=== PATIENT | female | born 1985 | race Caucasian/White ===

== ENCOUNTER 2017-09-16 17:55 | Emergency (ER) | payer MEDICAID, OTHER ==
[~2017-09-16] VITALS: Ht 160 cm; Wt 90.9 kg
[~2017-09-16 17:55] MED LIST: CIPR250T27 PO; HYDR-3237 PO; METR500T PO; ONDA4TAB10 PO
[2017-09-16 18:21] LABS: HEMATOCRIT 42.3 % (34.6-47.8); HEMOGLOBIN 14.1 g/dL (11.7-16.4); WHITE BLOOD COUNT 14.3 x10^3/uL (3.4-10)
[2017-09-16] MEDS ORDERED: ASPIRIN 81 MG TABLET CHEW ONE (18:21)
[2017-09-16] MEDS ORDERED: MAALOX/HYOSCYAMINE/LIDOCAINE 45 ML BTL PO ONE (18:30)
[2017-09-16] MEDS ORDERED: FAMOTIDINE 20 MG TABLET PO ONE (18:30)
[2017-09-16] MEDS ORDERED: SODIUM CHLORIDE FLUSH 10ML SYR IVF ONE (18:30)
[2017-09-16] MEDS ORDERED: ASPIRIN 81 MG TABLET CHEW PO ONE (18:30)
[2017-09-16] MEDS ORDERED: SODIUM CHLORIDE 0.9% 1,000ML IVBOLUS ONE (18:30)
[2017-09-16 18:34] LABS: ASPARTATE AMINO TRANSFERASE 16 U/L (15-37); BLOOD UREA NITROGEN 16 mg/dL (7-18)
[2017-09-16 18:38] LABS: IS PT STATUS REG ER OR PRE ER? YES
[2017-09-16] MEDS ORDERED: MAALOX/HYOSCYAMINE/LIDOCAINE 45 ML BTL ONE (19:05)
[2017-09-16] MEDS ORDERED: FAMOTIDINE 20 MG/2 ML ONE (19:05)
[2017-09-16 20:45] LABS: PATH.CAST-FLAG NOT PRESENT; SPERM-FLAG NOT PRESENT; SRC-FLAG NOT PRESENT; XTAL-FLAG NOT PRESENT; YLC-FLAG NOT PRESENT
[2017-09-16 21:00] LABS: HCG UR LOT HCG7030192
[2017-09-16 21:18] LABS: HCG UR OBC PASS
[2017-09-16 22:35] VITALS: BP 146/101
== END 2017-09-16 22:48 | disposition home or self-care (01) ==
LOC: ED 20:06
DX: R06.02 Shortness of breath (principal); R10.84 Generalized abdominal pain; E66.9 Obesity, unspecified
CPT/HCPCS: 36415; 71010; 80053; 81001; 81025; 83690; 84484; 85025; 85379; 87086; 93005; 96360; 99285; J7030

== ENCOUNTER 2018-09-15 13:18 | Emergency (ER) | payer MEDICAID, OTHER ==
[~2018-09-15] VITALS: Ht 158.8 cm; Wt 94.2 kg
[2018-09-15 14:22] LABS: MICROSCOPIC AUTO
[2018-09-15 14:27] LABS: BASOPHILS # (AUTO) 0.05 x10^3/uL (0-0.1); BASOPHILS % (AUTO) 1 % (0-1); EOSINOPHILS # (AUTO) 0.16 x10^3/uL (0-0.4); EOSINOPHILS % (AUTO) 2 % (1-7); LYMPHOCYTES # (AUTO) 2.38 x10^3/uL (1-3.4); LYMPHOCYTES % (AUTO) 26 % (22-44); MD NO; MEAN CORPUSCULAR HEMOGLOBIN 28.2 pg (27.0-34.8); MEAN CORPUSCULAR HGB CONC 33.5 g/dL (32.4-35.8); MEAN CORPUSCULAR VOLUME 84.2 fL (80-100); MEAN PLATELET VOLUME 9.2 fL (7.4-10.4); MONOCYTES # (AUTO) 0.63 x10^3/uL (0.2-0.8); MONOCYTES % (AUTO) 7 % (2-9); NEUTROPHILS # (AUTO) 5.93 x10^3/uL (1.8-6.8); NEUTROPHILS % (AUTO) 65 % (42-75); PLATELET COUNT 312 x10^3/uL (130-400); RED BLOOD COUNT 4.96 x10^6/uL (3.82-5.3); RED CELL DISTRIBUTION WIDTH 14.2 % (9.6-15.2)
[2018-09-15 14:40] LABS: ALANINE AMINOTRANSFERASE 37 U/L (12-78); ALBUMIN 3.5 g/dL (3.4-5.0); CALCIUM 8.3 mg/dL (8.5-10.1); CREATININE 0.75 mg/dL (0.55-1.02)
[2018-09-15 14:42] LABS: CULTURE INDICATED? YES
[2018-09-15 14:42] LABS: ALKALINE PHOSPHATASE 92 U/L (45-117); BILIRUBIN,TOTAL 0.3 mg/dL (0.2-1.0); TOTAL PROTEIN 6.8 g/dL (6.4-8.2)
[2018-09-15] MEDS ORDERED: ONDANSETRON ODT 4 MG ONE (14:50)
[2018-09-15] MEDS ORDERED: MAALOX/HYOSCYAMINE/LIDOCAINE 45 ML BTL ONE (14:51)
[2018-09-15] MEDS ORDERED: ONDANSETRON ODT 4 MG PO ONE (15:00)
[2018-09-15] MEDS ORDERED: MAALOX/HYOSCYAMINE/LIDOCAINE 45 ML BTL PO ONE (15:00)
[2018-09-15 15:03] LABS: ANION GAP 6 mmol/L (5-15); CHLORIDE 110 mmol/L (98-107)
[2018-09-15 16:00] VITALS: BP 146/93
== END 2018-09-15 16:02 | disposition home or self-care (01) ==
LOC: ED 14:44
DX: R10.13 Epigastric pain (principal)
CPT/HCPCS: 36415; 80053; 81001; 81025; 83690; 85025; 87086; 93005; 99284; Q0162

== ENCOUNTER → 2018-10-16 | Outpatient (CLI) | payer OTHER ==
[~2018-10-16] MED LIST changes: +OMNIPAQUE 350 MG/ML, 100ML BOTTLE ONE
== END | disposition home or self-care (01) ==
LOC: CFH 14:28
PROVIDERS: ATTEND Nurse Practitioner Family
DX: K57.30 Diverticulosis of large intestine without perforation or abscess without bleeding (principal); K59.00 Constipation, unspecified; R12 Heartburn; R11.2 Nausea with vomiting, unspecified; Z90.49 Acquired absence of other specified parts of digestive tract
CPT/HCPCS: 74177; Q9967

== ENCOUNTER 2019-12-06 16:33 | Emergency (ER) | payer OTHER ==
[~2019-12-06] VITALS: Ht 157.5 cm; Wt 90.8 kg
[~2019-12-06 16:33] MED LIST changes: -OMNIPAQUE 350 MG/ML, 100ML BOTTLE ONE
--- NOTE | 2019-12-06 16:50 | NUR ---
NA X1
--- NOTE | 2019-12-06 17:18 | NUR ---
INVENTORY AUDITOR: PT GETTING LABS AT THIS TIME. THEN WILL BE TAKEN TO ROOM 23. NADN.
[2019-12-06 17:38] LABS: BASOPHILS # (AUTO) 0.06 x10^3/uL (0-0.1); BASOPHILS % (AUTO) 0 % (0-1); EOSINOPHILS % (AUTO) 3 % (1-7); LYMPHOCYTES # (AUTO) 2.12 x10^3/uL (1-3.4); LYMPHOCYTES % (AUTO) 14 % (22-44); MD NO; MEAN CORPUSCULAR HEMOGLOBIN 26.8 pg (27.0-34.8); MEAN CORPUSCULAR HGB CONC 32.7 g/dL (32.4-35.8); MEAN PLATELET VOLUME 9.5 fL (7.4-10.4); MONOCYTES # (AUTO) 0.74 x10^3/uL (0.2-0.8); MONOCYTES % (AUTO) 5 % (2-9); NEUTROPHILS # (AUTO) 11.76 x10^3/uL (1.8-6.8); NEUTROPHILS % (AUTO) 78 % (42-75); PLATELET COUNT 310 x10^3/uL (130-400); RED BLOOD COUNT 4.51 x10^6/uL (3.82-5.3); RED CELL DISTRIBUTION WIDTH 15.4 % (9.6-15.2)
[2019-12-06 17:42] LABS: ALANINE AMINOTRANSFERASE 16 U/L (12-78); ALBUMIN 3.4 g/dL (3.4-5.0); ANION GAP 5 mmol/L (5-15); CALCIUM 8.4 mg/dL (8.5-10.1); CHLORIDE 109 mmol/L (98-107)
[2019-12-06 17:46] LABS: ALKALINE PHOSPHATASE 76 U/L (45-117); BILIRUBIN,TOTAL 0.2 mg/dL (0.2-1.0); TOTAL PROTEIN 6.5 g/dL (6.4-8.2)
[2019-12-06] MEDS ORDERED: SODIUM CHLORIDE 0.9% 1,000 ML IV ONE (18:07)
--- NOTE | 2019-12-06 18:22 | NUR ---
UP TO RESTROOM TO VOID
[2019-12-06] MEDS ORDERED: ONDANSETRON 2MG/ML, 2ML IVPush ONE (18:30)
[2019-12-06] MEDS ORDERED: SODIUM CHLORIDE FLUSH 10ML SYR IVF ONE (18:30)
[2019-12-06] MEDS ORDERED: MORPHINE SULFATE 4 MG/ML, 1ML ONE ×2 (18:33→19:39)
[2019-12-06] MEDS ORDERED: ONDANSETRON 2MG/ML, 2ML ONE (18:33)
[2019-12-06] MEDS: MORPHINE SULFATE 4 MG/ML, 1ML IVPush PRN ×2 (18:49→19:42)
--- NOTE | 2019-12-06 19:10 | NUR ---
TO CT SCAN
--- NOTE | 2019-12-06 19:18 | NUR ---
PAIN IMPROVED TO 0/10 VSS ON NIBP/POX UPDATED ON ESTIMATED POC
[2019-12-06 19:21] LABS: MICROSCOPIC INDICATED
[2019-12-06 19:38] LABS: CULTURE INDICATED? NO
[2019-12-06] MEDS ORDERED: OMNIPAQUE 350 MG/ML, 100ML BOTTLE ONE (19:38)
--- NOTE | 2019-12-06 19:42 | NUR ---
PAIN REBOUNDED TO 7/10-REMEDICATED PER EMAR
[2019-12-06 19:43] VITALS: BP 145/85
--- NOTE | 2019-12-06 19:53 | NUR ---
RADIOLOGY CALLED TO EXPIDIT CT READ
== END 2019-12-06 20:51 ==
LOC: ED 19:20
DX: K57.32 Diverticulitis of large intestine without perforation or abscess without bleeding (principal); F17.200 Nicotine dependence, unspecified, uncomplicated; Z90.49 Acquired absence of other specified parts of digestive tract
CPT/HCPCS: 36415; 74177; 80053; 81001; 83690; 84703; 85025; 96361; 96374; 96375; 96376; 99285; J2270; J2405; J7030; Q9967

== ENCOUNTER 2020-08-04 11:18 | Outpatient (CLI) | payer SELFPAY ==
[~2020-08-04] VITALS: Ht 157.5 cm; Wt 104.5 kg
[2020-08-04 11:43] VITALS: BP 134/80
[2020-08-04 12:00] LABS: ALANINE AMINOTRANSFERASE 16 U/L (12-78); ALBUMIN 2.5 g/dL (3.4-5.0); ANION GAP 10 mmol/L (5-15); CALCIUM 10.2 mg/dL (8.5-10.1); CHLORIDE 108 mmol/L (98-107); CREATININE 0.74 mg/dL (0.55-1.02)
[2020-08-04 12:01] LABS: CREATININE,URINE RANDOM 95.7 mg/dL
[2020-08-04 12:02] LABS: ALKALINE PHOSPHATASE 134 U/L (45-117); BILIRUBIN,TOTAL 0.2 mg/dL (0.2-1.0); TOTAL PROTEIN 6.9 g/dL (6.4-8.2)
[2020-08-04 12:07] LABS: MICROSCOPIC INDICATED
[2020-08-04 12:11] LABS: BASOPHILS % (AUTO) 0 % (0-1); EOSINOPHILS % (AUTO) 0 % (1-7); LYMPHOCYTES % (AUTO) 12 % (22-44); MEAN CORPUSCULAR HEMOGLOBIN 27.2 pg (27.0-34.8); MEAN CORPUSCULAR HGB CONC 32.6 g/dL (32.4-35.8); MEAN PLATELET VOLUME 9.5 fL (7.4-10.4); MONOCYTES % (AUTO) 4 % (2-9); NEUTROPHILS % (AUTO) 83 % (42-75); PLATELET COUNT 292 x10^3/uL (130-400); RED BLOOD COUNT 4.45 x10^6/uL (3.82-5.3); RED CELL DISTRIBUTION WIDTH 15.1 % (9.6-15.2)
[2020-08-04 12:37] LABS: MD NO
== END 2020-08-04 12:43 | disposition home or self-care (01) ==
LOC: LDOP 11:18
PROVIDERS: ATTEND Obstetrics & Gynecology
DX: O16.3 Unspecified maternal hypertension, third trimester (principal); Z3A.38 38 weeks gestation of pregnancy
CPT/HCPCS: 36415; 59025; 80053; 81001; 82570; 84156; 84550; 85025

== ENCOUNTER 2020-08-10 12:52 | Inpatient (IN) | payer OTHER ==
[~2020-08-10] VITALS: Ht 157.5 cm; Wt 106.8 kg
[2020-08-10 13:49] LABS: MICROSCOPIC INDICATED
[2020-08-10] MEDS ORDERED: D5%-LACTATED RINGERS 1,000 ML IV SCH (14:00)
[2020-08-10] MEDS ORDERED: OXYTOCIN 30U/ 0.9% NaCL 500ML 500 ML IV PRN (14:00)
[2020-08-10] MEDS ORDERED: FENTANYL PF 100 MCG/2ML IVPush PRN (14:00)
[2020-08-10] MEDS ORDERED: OXYTOCIN 30U/ 0.9% NaCL 500ML 500 ML IV ONE (14:00)
[2020-08-10] MEDS ORDERED: TERBUTALINE 1 MG/ML, 1ML SQ PRN (14:00)
[2020-08-10] MEDS ORDERED: TERBUTALINE 1 MG/ML, 1ML IVPush PRN (14:00)
[2020-08-10] MEDS ORDERED: PLEASE ENTER HEIGHT AND WEIGHT MC SCH ×2 (14:00→14:30)
[2020-08-10 14:01] LABS: BASOPHILS % (AUTO) 0 % (0-1); EOSINOPHILS % (AUTO) 1 % (1-7); LYMPHOCYTES % (AUTO) 13 % (22-44); MEAN CORPUSCULAR HEMOGLOBIN 27.2 pg (27.0-34.8); MEAN CORPUSCULAR HGB CONC 32.5 g/dL (32.4-35.8); MEAN PLATELET VOLUME 9.5 fL (7.4-10.4); MONOCYTES % (AUTO) 7 % (2-9); NEUTROPHILS % (AUTO) 79 % (42-75); PLATELET COUNT 311 x10^3/uL (130-400); RED BLOOD COUNT 4.45 x10^6/uL (3.82-5.3); RED CELL DISTRIBUTION WIDTH 15.4 % (9.6-15.2)
[2020-08-10 14:12] LABS: ALANINE AMINOTRANSFERASE 19 U/L (12-78); ALBUMIN 2.4 g/dL (3.4-5.0); ANION GAP 7 mmol/L (5-15); BILIRUBIN, DIRECT < 0.1 mg/dL (0.1-0.2); CALCIUM 9.8 mg/dL (8.5-10.1); CHLORIDE 108 mmol/L (98-107); CREATININE 0.65 mg/dL (0.55-1.02)
[2020-08-10 14:14] LABS: ALKALINE PHOSPHATASE 129 U/L (45-117); BILIRUBIN,TOTAL 0.2 mg/dL (0.2-1.0); TOTAL PROTEIN 6.8 g/dL (6.4-8.2)
[2020-08-10] MEDS: LACTATED RINGERS 1,000 ML IV SCH ×2 (14:22→20:34)
[2020-08-10] MEDS ORDERED: LABETALOL 5MG/ML, 20ML ONE (14:35)
[2020-08-10 14:45] VITALS: BP 181/99
[2020-08-10 14:48] LABS: MD SCAN
[2020-08-10] MEDS ORDERED: LABETALOL 5MG/ML, 20ML IVPush PRN ×3 (15:00)
[2020-08-10] MEDS ORDERED: hydrALAzine 20 MG/ML, 1ML IVPush ONE (15:00)
[2020-08-10] MEDS ORDERED: CALCIUM CARBONATE 500 MG TAB.CHEW ONE ×2 (15:02→22:19)
[2020-08-10] MEDS: CALCIUM CARBONATE 500 MG TAB.CHEW PO PRN ×2 (15:03→22:10)
[2020-08-10] MEDS ORDERED: OXYTOCIN 30U/ 0.9% NaCL 500ML 500 ML ONE (15:39)
[2020-08-10] MEDS ORDERED: LABETALOL 5MG/ML, 20ML IVPush STA (17:16)
[2020-08-10] MEDS ORDERED: MAGNESIUM SULF. PMX 20GM/500ML 500 ML IV ONE (18:25)
[2020-08-10] MEDS ORDERED: MAGNESIUM SULFATE PMX 4GM/100M 100 ML IVPB ONE (18:30)
[2020-08-10] MEDS ORDERED: PREN1TAB60 PO (18:43)
[2020-08-10] MEDS: MAGNESIUM SULF. PMX 20GM/500ML 500 ML IV SCH (18:55)
[2020-08-10] MEDS ORDERED: BUPIVACAINE 0.25% ONE (21:02)
[2020-08-10] MEDS ORDERED: FENTANYL/BUPIV./NS/PF 250 ML EPIDCONT ONE (21:03)
[2020-08-10] MEDS ORDERED: EPHEDRINE 50 MG/ML, 1ML ONE (21:30)
[2020-08-10] MEDS ORDERED: LACTATED RINGERS 1,000 ML IV SCH (21:30)
[2020-08-10] MEDS ORDERED: FENTANYL/BUPIV./NS/PF 250 ML EPIDCONT SCH (21:30)
[2020-08-10] MEDS ORDERED: LACTATED RINGERS 1,000 ML IVBOLUS PRN (21:30)
[2020-08-10] MEDS: EPHEDRINE 50 MG/ML, 1ML IVPush PRN ×2 (21:32→22:06)
[2020-08-11] MEDS ORDERED: ONDANSETRON 2MG/ML, 2ML ONE (01:21)
[2020-08-11] MEDS ORDERED: ONDANSETRON 2MG/ML, 2ML IVPush PRN (01:30)
[2020-08-11] MEDS ORDERED: MAGNESIUM SULF. PMX 20GM/500ML 500 ML IV ONE ×3 (01:53→21:56)
[2020-08-11] MEDS: MAGNESIUM SULF. PMX 20GM/500ML 500 ML IV SCH ×3 (02:33→22:05)
[2020-08-11] MEDS ORDERED: NEWBORN KIT ONE (03:33)
[2020-08-11] MEDS ORDERED: MISOPROSTOL 200 MCG TABLET ONE (03:43)
[2020-08-11] MEDS ORDERED: LIDOCAINE 1%, 20ML ONE (03:43)
[2020-08-11] MEDS ORDERED: OXYTOCIN 30U/ 0.9% NaCL 500ML 500 ML ONE (04:13)
[2020-08-11] MEDS: OXYTOCIN 30U/ 0.9% NaCL 500ML 500 ML IV SCH ×2 (04:30→14:30)
[2020-08-11] MEDS ORDERED: SIMETHICONE 80 MG CHEW TAB PO PRN (04:30)
[2020-08-11] MEDS ORDERED: DIPH,PERTUSS(ACELL),TET VAC/PF NC IM-VACC PRN (04:30)
[2020-08-11] MEDS ORDERED: CARBOPROST TROMETHAMINE 250 MCG/ML, 1ML IM PRN (04:30)
[2020-08-11] MEDS ORDERED: IBUPROFEN 600 MG TABLET PO PRN (04:30)
[2020-08-11] MEDS ORDERED: TRANEXAMIC ACID 100 MG/ML, 10ML IV ONE (04:30)
[2020-08-11] MEDS ORDERED: MISOPROSTOL 200 MCG TABLET PR PRN (04:30)
[2020-08-11] MEDS ORDERED: ACETAMINOPHEN 325 MG TABLET ONE (05:11)
[2020-08-11] MEDS: ACETAMINOPHEN 325 MG TABLET PO PRN (05:13)
[2020-08-11] MEDS: LACTATED RINGERS 1,000 ML IV SCH ×3 (06:00→22:00)
[2020-08-11] MEDS ORDERED: OXYcodone IR 5MG TABLET ONE (06:56)
[2020-08-11] MEDS ORDERED: OXYcodone IR 5MG TABLET PO PRN (07:00)
[2020-08-11 08:23] VITALS: BP 137/85
[2020-08-11] MEDS: PRENATAL VIT/IRON/FA 1 EACH TABLET PO SCH (09:00)
[2020-08-11] MEDS ORDERED: OXYcodone/APAP 5/325MG TABLET ONE ×2 (10:19→18:34)
[2020-08-11] MEDS: OXYcodone/APAP 5/325MG TABLET PO PRN ×2 (10:23→18:36)
[2020-08-11 12:09] LABS: BASOPHILS % (AUTO) 0 % (0-1); EOSINOPHILS % (AUTO) 0 % (1-7); LYMPHOCYTES % (AUTO) 7 % (22-44); MEAN CORPUSCULAR HEMOGLOBIN 27.5 pg (27.0-34.8); MEAN CORPUSCULAR HGB CONC 32.6 g/dL (32.4-35.8); MEAN PLATELET VOLUME 9.1 fL (7.4-10.4); MONOCYTES % (AUTO) 5 % (2-9); NEUTROPHILS % (AUTO) 89 % (42-75); PLATELET COUNT 236 x10^3/uL (130-400); RED BLOOD COUNT 3.87 x10^6/uL (3.82-5.3); RED CELL DISTRIBUTION WIDTH 15.9 % (9.6-15.2)
[2020-08-11 12:45] LABS: MD SCAN
[2020-08-11] MEDS ORDERED: OMNIPAQUE 350 MG/ML, 100ML BOTTLE ONE (23:24)
[2020-08-12] MEDS: OXYTOCIN 30U/ 0.9% NaCL 500ML 500 ML IV SCH ×3 (00:30→20:30)
[2020-08-12] MEDS ORDERED: OXYcodone/APAP 5/325MG TABLET ONE ×2 (02:10→07:18)
[2020-08-12] MEDS: OXYcodone/APAP 5/325MG TABLET PO PRN ×2 (02:13→07:22)
[2020-08-12] MEDS: LACTATED RINGERS 1,000 ML IV SCH ×3 (06:00→22:00)
[2020-08-12 08:30] VITALS: BP 147/84
[2020-08-12] MEDS: DOCUSATE 100 MG CAPSULE PO PRN (08:57)
[2020-08-12] MEDS: PRENATAL VIT/IRON/FA 1 EACH TABLET PO SCH ×2 (08:57→09:00)
[2020-08-12] MEDS: ACETAMINOPHEN 325 MG TABLET PO PRN ×3 (12:13→23:36)
[2020-08-12 12:30] VITALS: BP 137/90
[2020-08-12 16:30] VITALS: BP 151/96
[2020-08-12 20:00] VITALS: BP 140/87
[2020-08-13] VITALS (10 sets, daily range): BP systolic 144–162; BP diastolic 78–106
[2020-08-13] MEDS: LACTATED RINGERS 1,000 ML IV SCH ×3 (06:00→22:00)
[2020-08-13] MEDS: OXYTOCIN 30U/ 0.9% NaCL 500ML 500 ML IV SCH ×2 (06:30→16:30)
[2020-08-13] MEDS: DOCUSATE 100 MG CAPSULE PO PRN ×2 (08:25→20:18)
[2020-08-13] MEDS: PRENATAL VIT/IRON/FA 1 EACH TABLET PO SCH (08:25)
[2020-08-13] MEDS: OXYcodone/APAP 5/325MG TABLET PO PRN ×4 (08:26→20:18)
[2020-08-13] MEDS ORDERED: IBUP-1223 PO (09:32)
[2020-08-13] MEDS ORDERED: OXYC-302 PO (09:34)
[2020-08-13] MEDS: ACETAMINOPHEN 325 MG TABLET PO PRN (11:12)
[2020-08-13] MEDS ORDERED: niFEDipine ER 30 MG TABLET.ER ONE (15:23)
[2020-08-13] MEDS: niFEDipine ER 30 MG TABLET.ER PO SCH (15:28)
[2020-08-14 00:35] VITALS: BP 148/95
[2020-08-14] MEDS: OXYcodone/APAP 5/325MG TABLET PO PRN ×4 (00:38→14:53)
[2020-08-14] MEDS: OXYTOCIN 30U/ 0.9% NaCL 500ML 500 ML IV SCH (02:30)
[2020-08-14 05:00] VITALS: BP 150/94
[2020-08-14] MEDS: LACTATED RINGERS 1,000 ML IV SCH (06:00)
[2020-08-14] MEDS ORDERED: niFEDipine ER 30 MG TABLET.ER PO ONE (07:00)
[2020-08-14 08:00] VITALS: BP 138/87
[2020-08-14] MEDS: DOCUSATE 100 MG CAPSULE PO PRN (08:16)
[2020-08-14] MEDS: PRENATAL VIT/IRON/FA 1 EACH TABLET PO SCH (08:16)
[2020-08-14] MEDS: ACETAMINOPHEN 325 MG TABLET PO PRN ×2 (08:17→12:37)
[2020-08-14 12:00] VITALS: BP 137/82
[2020-08-14] MEDS: niFEDipine ER 30 MG TABLET.ER PO SCH (15:48)
[2020-08-14 16:00] VITALS: BP 149/94
[2020-08-14 16:45] VITALS: BP 147/92
== END 2020-08-14 18:58 | disposition home or self-care (01) | DRG 807 ==
LOC: LDOP 12:52 → LDIP 13:52 → 2NE 08-11 06:10 → 2NW 08-12 08:21
PROVIDERS: ADMIT Obstetrics & Gynecology; ATTEND Obstetrics & Gynecology
PROC: 10E0XZZ Delivery of Products of Conception, External Approach (ICD-10-PCS; principal; 2020-08-11)
DX: O14.14 Severe pre-eclampsia complicating childbirth (principal); Z37.0 Single live birth; Z20.828 Contact with and (suspected) exposure to other viral communicable diseases; Z3A.39 39 weeks gestation of pregnancy; Z91.010 Allergy to peanuts
CPT/HCPCS: 36415; 71045; 71275; 80053; 81001; 82248; 82570; 83735; 84156; 84550; 85025; 86592; 86850; 86900; 87635; G0378; J2405; Q9967; J2590; J3475; J7120

== ENCOUNTER 2021-05-29 12:33 | Emergency (ER) | payer OTHER ==
[~2021-05-29] VITALS: Ht 157.5 cm; Wt 101.0 kg
[~2021-05-29 12:33] MED LIST changes: +IBUP-1223 PO; +OXYC1TAB14 PO; +PREN1TAB60 PO
[2021-05-29 12:45] VITALS: BP 148/79
[2021-05-29] MEDS ORDERED: OXYcodone/APAP 5/325MG TABLET ONE (13:12)
[2021-05-29] MEDS ORDERED: OXYcodone/APAP 5/325MG TABLET PO ONE (13:30)
--- NOTE | 2021-05-29 13:49 | NUR ---
PT STATES PAIN IS BETTER
--- NOTE | 2021-05-29 14:34 | NUR ---
PT REFUSED CRUTCHES, HAS SOME AT HOME
--- NOTE | 2021-05-29 14:34 | NUR ---
Patient/Caregiver given discharge instructions and they have confirmed that they understand the instructions. Patient ambulatory with steady gait. NAD, all questions answered appropriately, denies additional needs at this time. No personal belongings left in room after discharge.
== END 2021-05-29 14:35 | disposition home or self-care (01) ==
LOC: ED 13:54
DX: S82.64XA Nondisplaced fracture of lateral malleolus of right fibula, initial encounter for closed fracture (principal); I10 Essential (primary) hypertension; X58.XXXA Exposure to other specified factors, initial encounter; Y93.89 Activity, other specified; Y92.89 Other specified places as the place of occurrence of the external cause; Y99.8 Other external cause status
CPT/HCPCS: 29515; 99284

== ENCOUNTER 2021-07-17 13:23 | Emergency (ER) | payer OTHER ==
[~2021-07-17] VITALS: Ht 157.5 cm; Wt 101.3 kg
[~2021-07-17 13:23] MED LIST changes: +OXYC1TAB12 PO; -OXYC1TAB14 PO
[2021-07-17 15:11] LABS: BASOPHILS % (AUTO) 1 % (0-1); EOSINOPHILS % (AUTO) 5 % (1-7); LYMPHOCYTES % (AUTO) 27 % (22-44); MEAN CORPUSCULAR HEMOGLOBIN 26.6 pg (27.0-34.8); MEAN CORPUSCULAR HGB CONC 33.1 g/dL (32.4-35.8); MEAN PLATELET VOLUME 8.4 fL (7.4-10.4); MONOCYTES % (AUTO) 6 % (2-9); NEUTROPHILS % (AUTO) 61 % (42-75); PLATELET COUNT 320 x10^3/uL (130-400); RED BLOOD COUNT 5.06 x10^6/uL (3.82-5.3); RED CELL DISTRIBUTION WIDTH 15.2 % (9.6-15.2)
[2021-07-17 15:21] LABS: CHLORIDE 112 mmol/L (98-107)
[2021-07-17 15:31] LABS: ANION GAP 8 mmol/L (5-15); CALCIUM 8.2 mg/dL (8.5-10.1); CREATININE 0.77 mg/dL (0.55-1.02)
[2021-07-17 15:32] LABS: ALBUMIN 3.4 g/dL (3.4-5.0); TROPONIN I < 0.015 ng/mL (0.000-0.045)
[2021-07-17 17:52] VITALS: BP 156/99
--- NOTE | 2021-07-17 17:53 | NUR ---
ASSUMED CARE OF PT AT THIS TIME FROM [facility]. DR. CLARK AT BEDSIDE FOR RECHECK, DISCUSSING TEST RESULTS AND DISCHARGE POC. PT WAS EVALUATED IN PIT. 35 Y/O F ACCOMPANIED BY SPOUSE ARRIVES STATING "FRIDAY I HAD COLD SWEATS, LAST NIGHT I WAS IN LAUNDRY ROOM, FELT EMOTIONAL, FACE AND FEET TINGLING, FELT LIKE I WAS GOING TO PASS OUT, LAID DOWN ON FLOOR. WHEN I GOT UP MY LEFT ARM HAD PAIN, IT IS STILL PAINFUL AND I FEEL LIKE IT'S RED, WENT TO MY HOMEOPATHIC CHIROPRACTOR DOCTOR AND HE RECOMMENDED I COME HERE." A&OX4. DENIES CP, SOB, KUMAR, VISUAL CHANGES, FEVER, CHILLS, COUGH AT THIS TIME. MONITORS APPLIED. VSS. RATES PAIN 9/10 IN LEFT SHOULDER. CALL LIGHT IN REACH. FALL PRECUATIONS IN PLACE. SIDE RAILS UPX2. PT CLEARED FOR DISCHARGE BY DR. CLARK AT THIS TIME.
[2021-07-17] MEDS ORDERED: LOSA25TA25 PO (18:02)
--- NOTE | 2021-07-17 18:05 | NUR ---
PT REQUESTING COPIES OF ALL TEST RESULTS AND TEST RESULTS. DR. CLARK DISCUSSED WITH PT AND PROVIDED TEST RESULTS. TEST WAS NOT COMPLETED. PT REQUESTING TEST. DR. CLARK CALLED LAB AND ORDERED TEST. GAVE PT OPTION TO WAIT 30 MINUTES FOR RESULTS OR DISCHARGE NOW AND RESULTS WOULD BE CALLED. PT REQUESTS TO GO HOME AT THIS TIME AND BE CALLED WITH RESULTS AT . AMBULATED TO CHECK OUT DESK WITH STEADY GAIT WITH SPOUSE.
--- NOTE | 2021-07-17 19:30 | NUR ---
DR. CLARK CALLED PT AT LISTED CONTACT NUMBER AND UPDATED PT ON NEGATIVE PREGNACY BLOOD TEST, MD ANSWERED ALL PT QUESTIONS/CONCERNS.
== END 2021-07-17 18:24 | disposition home or self-care (01) ==
LOC: ED 13:28
DX: R07.89 Other chest pain (principal); I80.8 Phlebitis and thrombophlebitis of other sites; S46.012A Strain of muscle(s) and tendon(s) of the rotator cuff of left shoulder, initial encounter; I10 Essential (primary) hypertension; X58.XXXA Exposure to other specified factors, initial encounter; Y93.89 Activity, other specified; Y92.89 Other specified places as the place of occurrence of the external cause; Y99.8 Other external cause status
CPT/HCPCS: 36415; 71045; 80048; 82040; 84484; 84703; 85025; 93005; 99285